=== PATIENT | female | born 1955 | race Caucasian/White ===

== ENCOUNTER 2018-08-31 21:06 | Emergency (ER) | payer BC ==
[2018-08-31] MEDS ORDERED: Zofran 4 MG/2 ML VIAL IV ONE (21:33)
[2018-08-31] MEDS ORDERED: Sodium Chloride 0.9% 1000 ML 1,000 ML IV STA (21:33)
--- NOTE | 2018-08-31 21:33 | ERPHSYRPT ---
- History of Present Illness Time Seen by Provider: 08/31/18 21:31 Historian: patient, family Exam Limitations: no limitations Patient Subjective Stated Complaint: pt reports right sided lower back pain that radiates down the lower extremity just proximal to the knee. pt also reports intermittent pain to the RLQ quadrant of the abdomen. pt reports pain is worse with movement. pt states she has been seeing a chiropractor for this pain going on 3 weeks, states some days it is worse than others. Triage Nursing Assessment: pt is aox3, pupils perrl, afebrile, resps easy and non labored, radial pulses strong and equal, cap refill < 3 seconds, pt skin pink warm dry. pt sensation is intact. ROM limited due to pain. no edema noted. Physician History: right flank pain radiating to anterior abd on hx of chronic back pain worse these three weeks and chiro tx not working' no n or v or fever or discharge; Timing/Duration: day(s) Activities at Onset: none Quality: sharpness, stabbing Abdominal Pain Onset Location: RLQ, flank Severity of Pain-Max: moderate Severity of Pain-Current: moderate Associated Symptoms: back Previous symptoms: different symptoms Allergies/Adverse Reactions: No Known Drug Allergies Allergy (Verified 08/31/18 21:26) Home Medications: Aspirin 81 mg PO DAILY 03/27/15 [History] Diltiazem HCl [Cardizem] 120 mg PO DAILY 03/27/15 [History] PANTOPRAZOLE 40 mg Tablet [Protonix 40MG Tablet] 40 mg PO DAILY 03/27/15 [ History] Levothyroxine Sodium 25 Mcg [Synthroid 25 Mcg] 25 mcg PO DAILY 08/31/18 [ History] Pravastatin Sodium [Pravachol] 20 mg PO DAILY 08/31/18 [History] Hx Tetanus, Diphtheria Vaccination/Date Given: Yes Hx Influenza Vaccination/Date Given: Yes Hx Pneumococcal Vaccination/Date Given: No Immunizations Up to Date: Yes - Review of Systems Constitutional: No Fever, No Chills Eyes: No Symptoms Ears, Nose, & Throat: No Symptoms Respiratory: No Cough, No Dyspnea Cardiac: No Chest Pain, No Edema, No Syncope Abdominal/Gastrointestinal: Abdominal Pain, No Nausea, No Vomiting, No Diarrhea Genitourinary Symptoms: No Dysuria Musculoskeletal: Back Pain, No Neck Pain Skin: No Rash Neurological: No Dizziness, No Focal Weakness, No Sensory Changes Psychological: No Symptoms Endocrine: No Symptoms All Other Systems: Reviewed and Negative - Past Medical History Pertinent Past Medical History: Yes Neurological History: No Pertinent History ENT History: No Pertinent History Cardiac History: Hypertension, Other Respiratory History: COPD Endocrine Medical History: No Pertinent History Musculoskeletal History: Degenerative Disk Disease GI Medical History: GERD History: No Pertinent History Female Reproductive Disorders: No Pertinent History Other Medical History: SMALL VESSEL DISEASE, HYPERTENSION - Past Surgical History Past Surgical History: Yes Neuro Surgical History: No Pertinent History Cardiac: Cardiac Catheterization Respiratory: No Pertinent History Gastrointestinal: No Pertinent History Genitourinary: No Pertinent History Musculoskeletal: No Pertinent History Female Surgical History: Tubal Ligation, Other Other Surgical History: HEART CATH,D&c,TUBAL - Social History Smoking Status: Never smoker Exposure to second hand smoke: No Drug Use: none Patient Lives Alone: No - Female History Hx Now: No - Nursing Vital Signs Nursing Vital Signs: Initial Vital Signs Temperature 98.1 F 08/31/18 21:12 Pulse Rate 85 08/31/18 21:12 Respiratory Rate 20 08/31/18 21:12 Blood Pressure 179/91 08/31/18 21:12 O2 Sat by Pulse Oximetry 100 08/31/18 21:12 Pain Scale Pain Intensity 10 - Physical Exam General Appearance: no apparent distress, alert Eye Exam: PERRL/EOMI, eyes nml inspection Ears, Nose, Throat Exam: normal ENT inspection, pharynx normal, moist mucous membranes Neck Exam: normal inspection, non-tender, supple, full range of motion Respiratory Exam: normal breath sounds, lungs clear, No respiratory distress Cardiovascular Exam: regular rate/rhythm, normal heart sounds Gastrointestinal/Abdomen Exam: soft, No tenderness, No mass Pelvic Exam: deferred Rectal Exam: deferred Back Exam: normal inspection, normal range of motion, No CVA tenderness, No vertebral tenderness Extremity Exam: normal inspection, normal range of motion, pelvis stable Neurologic Exam: alert, oriented x 3, cooperative, normal mood/affect, nml cerebellar function, sensation nml, No motor deficits Skin Exam: normal color, warm, dry SpO2 Interpretation: normal SpO2: 100 O2 Delivery: Room Air - Course Nursing assessment & vital signs reviewed: Yes - CT Exams Abdomen/Pelvis CT Interpretation: Tele-radiologist Report, No appendicitis, Other (DJD and kidney stones) Ordered Tests: Active Orders 24 hr Category Date Time Status IV Insertion STAT Care 08/31/18 21:33 Active ABDOMEN AND PELVIS W/0 CONTRAS [CT] Stat Exams 08/31/18 21:34 Taken AMYLASE Stat Lab 08/31/18 21:48 Completed CBC W DIFF Stat Lab 08/31/18 21:48 Completed CMP Stat Lab 08/31/18 21:48 Completed HCG QUALITATIVE,SERUM Stat Lab 08/31/18 21:48 Completed LIPASE Stat Lab 08/31/18 21:48 Completed Lactic Acid Stat Lab 08/31/18 21:39 Completed Occult Blood, Other Screening Stat Lab 08/31/18 21:34 Uncollected UA W/RFX UR CULTURE Stat Lab 08/31/18 22:15 Completed Medication Summary Generic Name Dose Route Start Last Admin Trade Name Freq PRN Reason Stop Dose Admin Ketorolac Tromethamine 30 mg 09/01/18 00:34 Toradol 30 Mg Injection IV 09/01/18 00:35 STAT ONE Orphenadrine Citrate 60 mg 09/01/18 00:34 Norflex 60 Mg/2 Ml IM 09/01/18 00:35 STAT ONE Discontinued Medications Generic Name Dose Route Start Last Admin Trade Name Freq PRN Reason Stop Dose Admin Sodium Chloride 1,000 mls @ 999 mls/hr 08/31/18 21:33 08/31/18 23:12 Sodium Chloride 0.9% 1000 Ml IV 08/31/18 22:33 Infused .Q1H1M STA Infusion Sodium Chloride Confirm 08/31/18 21:47 Sodium Chloride 0.9% 1000 Ml Administered 08/31/18 21:48 Dose 1,000 mls @ ud .ROUTE .STK-MED ONE Ketorolac Tromethamine 30 mg 08/31/18 21:35 08/31/18 21:53 Toradol 30 Mg Injection IV 08/31/18 21:36 30 mg STAT ONE Administration Ketorolac Tromethamine Confirm 08/31/18 21:47 Toradol 30 Mg Injection Administered 08/31/18 21:48 Dose 30 mg .ROUTE .STK-MED ONE Ondansetron HCl 4 mg 08/31/18 21:33 08/31/18 21:53 Zofran 4 Mg/2 Ml Vial IV 08/31/18 21:34 4 mg STAT ONE Administration Ondansetron HCl Confirm 08/31/18 21:47 Zofran 4 Mg/2 Ml Vial Administered 08/31/18 21:48 Dose 4 mg .ROUTE .STK-MED ONE Lab/Rad Data: Laboratory Result Diagrams 08/31/18 21:48 08/31/18 21:48 Laboratory Results 08/31/18 08/31/18 08/31/18 Range/Units 22:15 21:48 21:48 WBC (4.0-10.5) K/mm3 RBC (4.1-5.4) M/mm3 Hgb (12.0-16.0) gm/dl Hct (35-47) % MCV (78-100) fl MCH (26-32) pg MCHC (32-36) g/dl RDW (11.5-14.0) % Plt Count (150-450) K/mm3 MPV (6-9.5) fl Gran % (36.0-66.0) % Eos # (Auto) (0-0.5) Absolute Lymphs (auto) (1.0-4.6) Absolute Monos (auto) (0.0-1.3) Lymphocytes % (24.0-44.0) % Monocytes % (0.0-12.0) % Eosinophils % (0.00-5.0) % Basophils % (0.0-0.4) % Absolute Granulocytes (1.4-6.9) Basophils # (0-0.4) Sodium 139 (137-145) mmol/L Potassium 3.8 (3.5-5.1) mmol/L Chloride 105 (98-107) mmol/L Carbon Dioxide 23 (22-30) mmol/L Anion Gap 14.9 (5-15) MEQ/L BUN 22 H (7-17) mg/dL Creatinine 0.81 (0.52-1.04) mg/dL Estimated GFR > 60.0 ML/MIN Glucose 92 (74-106) mg/dL Lactic Acid (0.4-2.0) Calcium 10.7 H (8.4-10.2) mg/dL Total Bilirubin 0.30 (0.2-1.3) mg/dL AST 22 (14-36) U/L ALT 23 (0-35) U/L Alkaline Phosphatase 90 (38-126) U/L Serum Total Protein 7.3 (6.3-8.2) g/dL Albumin 4.4 (3.5-5.0) g/dL Amylase 77 (30-110) U/L Lipase 122 (23-300) U/L Serum , Qual NEGATIVE (Negative) Urine Color STRAW (YELLOW) Urine Appearance CLEAR (CLEAR) Urine pH 6.0 (5-6) Ur Specific [place] 1.010 (1.005-1.025) Urine Protein NEGATIVE (Negative) Urine Ketones NEGATIVE (NEGATIVE) Urine Blood NEGATIVE (0-5) Ramirez/ul Urine Nitrite NEGATIVE (NEGATIVE) Urine Bilirubin NEGATIVE (NEGATIVE) Urine Urobilinogen NEGATIVE (0-1) mg/dL Ur Leukocyte Esterase TRACE (NEGATIVE) Urine WBC (Auto) 3-5 (0-5) /HPF Urine RBC (Auto) NONE (0-2) /HPF U Epithel Cells (Auto) NONE (FEW) /HPF Urine Bacteria (Auto) NONE (NEGATIVE) /HPF Urine Culture Reflexed NO (NO) Urine Glucose NEGATIVE (NEGATIVE) mg/dL 08/31/18 08/31/18 Range/Units 21:48 21:39 WBC 9.9 (4.0-10.5) K/mm3 RBC 4.25 (4.1-5.4) M/mm3 Hgb 12.4 (12.0-16.0) gm/dl Hct 37.4 (35-47) % MCV 88.0 (78-100) fl MCH 29.2 (26-32) pg MCHC 33.2 (32-36) g/dl RDW 13.6 (11.5-14.0) % Plt Count 253 (150-450) K/mm3 MPV 10.2 H (6-9.5) fl Gran % 44.5 (36.0-66.0) % Eos # (Auto) 0.11 (0-0.5) Absolute Lymphs (auto) 4.52 (1.0-4.6) Absolute Monos (auto) 0.82 (0.0-1.3) Lymphocytes % 45.8 H (24.0-44.0) % Monocytes % 8.3 (0.0-12.0) % Eosinophils % 1.1 (0.00-5.0) % Basophils % 0.3 (0.0-0.4) % Absolute Granulocytes 4.38 (1.4-6.9) Basophils # 0.03 (0-0.4) Sodium (137-145) mmol/L Potassium (3.5-5.1) mmol/L Chloride (98-107) mmol/L Carbon Dioxide (22-30) mmol/L Anion Gap (5-15) MEQ/L BUN (7-17) mg/dL Creatinine (0.52-1.04) mg/dL Estimated GFR ML/MIN Glucose (74-106) mg/dL Lactic Acid 1.7 (0.4-2.0) Calcium (8.4-10.2) mg/dL Total Bilirubin (0.2-1.3) mg/dL AST (14-36) U/L ALT (0-35) U/L Alkaline Phosphatase (38-126) U/L Serum Total Protein (6.3-8.2) g/dL Albumin (3.5-5.0) g/dL Amylase (30-110) U/L Lipase (23-300) U/L Serum , Qual (Negative) Urine Color (YELLOW) Urine Appearance (CLEAR) Urine pH (5-6) Ur Specific [place] (1.005-1.025) Urine Protein (Negative) Urine Ketones (NEGATIVE) Urine Blood (0-5) Ramirez/ul Urine Nitrite (NEGATIVE) Urine Bilirubin (NEGATIVE) Urine Urobilinogen (0-1) mg/dL Ur Leukocyte Esterase (NEGATIVE) Urine WBC (Auto) (0-5) /HPF Urine RBC (Auto) (0-2) /HPF U Epithel Cells (Auto) (FEW) /HPF Urine Bacteria (Auto) (NEGATIVE) /HPF Urine Culture Reflexed (NO) Urine Glucose (NEGATIVE) mg/dL - Progress Progress: improved, re-examined Counseled pt/family regarding: lab results, diagnosis, need for follow-up, rad results - Departure Departure Disposition: Home Clinical Impression: DDD Lumbar with radiculopathy, Renal calculi, Enchondroma of left femur Condition: Good Critical Care Time: No Referrals: SADI DENG MD [Primary Care Provider] - Instructions: Low Back Pain (DC), Sciatica (DC), Degenerative Disc Disease (DC ), Kidney Stones (DC) Additional Instructions: followup with your Dr. for enchondroma of left femur to recheck and kidney stones; also to recheck blood pressure and for further treatment of back; return meantime if any concerns. Prescriptions: Orphenadrine Citrate 100 mg [Norflex 100 MG Tablet] 100 mg PO BID #10 tab
[2018-08-31] MEDS ORDERED: TORAdol 30 mg Injection IV ONE (21:35)
[2018-08-31 21:47] LABS: BASOPHIL % 0.3 % (0.0-0.4); Basophil (Absolute #) 0.03 (0-0.4); Eosinophil % 1.1 % (0.00-5.0); Eosinophil (Absolute #) 0.11 (0-0.5); Granulocyte Absolute (ANC) 4.38 (1.4-6.9); Granulocytes % 44.5 % (36.0-66.0); Hematocrit 37.4 % (35-47); Hemoglobin 12.4 gm/dl (12.0-16.0); Lymphocyte (Absolute #) 4.52 (1.0-4.6); Lymphocytes % 45.8 % (24.0-44.0); Mean Corpuscular Hemoglobin 29.2 pg (26-32); Mean Corpuscular Hgb Concent. 33.2 g/dl (32-36); Mean Platelet Volume 10.2 fl (6-9.5); Monocyte (Absolute #) 0.82 (0.0-1.3); Monocytes % 8.3 % (0.0-12.0); Platelet Count 253 K/mm3 (150-450); Red Blood Count 4.25 M/mm3 (4.1-5.4); Red Cell Distribution Width 13.6 % (11.5-14.0); White Blood Count 9.9 K/mm3 (4.0-10.5)
[2018-08-31] MEDS ORDERED: Sodium Chloride 0.9% 1000 ML 1,000 ML ONE (21:47)
[2018-08-31] MEDS ORDERED: TORAdol 30 mg Injection ONE (21:47)
[2018-08-31] MEDS ORDERED: Zofran 4 MG/2 ML VIAL ONE (21:47)
[2018-08-31 21:58] LABS: ALBUMIN 4.4 g/dL (3.5-5.0); ALKALINE PHOSPHATASE 90 U/L (38-126); AMYLASE 77 U/L (30-110); ANION GAP 14.9 MEQ/L (5-15); BLOOD UREA NITROGEN 22 mg/dL (7-17); CHLORIDE 105 mmol/L (98-107); Calcium 10.7 mg/dL (8.4-10.2); Carbon Dioxide 23 mmol/L (22-30); Creatinine 1 0.81 mg/dL (0.52-1.04); Glucose 92 mg/dL (74-106); LIPASE 122 U/L (23-300); Potassium 3.8 mmol/L (3.5-5.1); SGOT/AST 22 U/L (14-36); SGPT/ALT 23 U/L (0-35); SODIUM 139 mmol/L (137-145); Total Protein 7.3 g/dL (6.3-8.2)
[2018-08-31 22:19] LABS: Appearance CLEAR (CLEAR); Bilirubin NEGATIVE (NEGATIVE); Blood NEGATIVE Ery/ul (0-5); Glucose NEGATIVE (NEGATIVE); Ketones NEGATIVE (NEGATIVE); Leukocyte Esterase TRACE (NEGATIVE); Nitrite NEGATIVE (NEGATIVE); Protein,Urine Dip NEGATIVE (Negative); Urobilinogen NEGATIVE mg/dL (0-1)
[2018-09-01] MEDS ORDERED: Norflex 60 MG/2 ML IM ONE (00:34)
[2018-09-01] MEDS ORDERED: TORAdol 30 mg Injection IV ONE (00:34)
[2018-09-01 00:41] VITALS: O2SAT 100
[2018-09-01] MEDS ORDERED: Norflex 60 MG/2 ML ONE (00:44)
[2018-09-01] MEDS ORDERED: TORAdol 30 mg Injection ONE (00:44)
[2018-09-01 01:02] VITALS: BP 181/77; PULSE 60
--- NOTE | 2018-09-01 08:03 | XRAY ---
Indication: Right lower quadrant/flank pain. Multiple contiguous axial images obtained through the abdomen and pelvis without contrast as ordered. Comparison: None Lung bases are essentially clear. Heart is not enlarged. Noncontrasted stomach and bowel loops appear nonobstructed. Normal appendix. Mild diffuse scattered colonic fecal debris greatest in the right hemicolon. No free fluid/air. Remaining liver, gallbladder, pancreas, spleen, adrenal glands, kidneys, ureters, bladder, uterus, and aorta appear unremarkable for noncontrast exam. Osseous structures intact with incidental small left proximal femur enchondroma. No ventral or inguinal hernias. Impression: 1. Mild fecal stasis without obstruction. 2. Proximal left femur benign enchondroma. 3. Remaining CT abdomen/pelvis without contrast exam is negative. Comment: Preliminary interpretation was made by C. No discrepancy. CTDI 18.92
== END 2018-09-01 01:19 | disposition home or self-care (01) ==
LOC: ED 21:06
DX: M51.36 Other intervertebral disc degeneration, lumbar region (principal); M54.10 Radiculopathy, site unspecified; N20.0 Calculus of kidney; D16.22 Benign neoplasm of long bones of left lower limb; Z79.899 Other long term (current) drug therapy; I10 Essential (primary) hypertension; J44.9 Chronic obstructive pulmonary disease, unspecified; K21.9 Gastro-esophageal reflux disease without esophagitis
CPT/HCPCS: 36000; 36415; 74176; 80053; 81001; 81025; 82150; 83605; 83690; 85025; 96360; 96361; 96372; 96374; 96375; 96376; 99284; J1885; J2360; J2405

== ENCOUNTER 2018-11-26 08:02 | Day surgery (SDC) | payer BC ==
[2018-11-26] MEDS ORDERED: Depo-Medrol 40 MG/ML IM ONE (08:03)
[2018-11-26] MEDS ORDERED: Xylocaine-Mpf 2% 5 Ml Vial IJ ONE (08:03)
[2018-11-26] MEDS ORDERED: DIPRIVAN 200 MG/20 ML IV ONE (09:49)
[2018-11-26] MEDS ORDERED: Ketamine HCl 50 MG/ML ONE (09:49)
--- NOTE | 2018-11-26 11:56 | XRAY ---
Indication: Bilateral L4-S1 MBB. Intraoperative fluoroscopy was provided for 9 seconds. Single digital spot image submitted for interpretation demonstrates posterior needle tips projecting over the expected course of the left and right L4-S1 nerve roots. Correlate with intraoperative findings/report.
--- NOTE | 2018-11-26 12:08 | XRAY ---
9 seconds fluoroscopy time in surgery for bilateral L4-S1 MBB.
[2018-11-26] MEDS ORDERED: Lactated Ringers 1,000 ML IV ONE (14:17)
== END 2018-11-26 10:10 | disposition home or self-care (01) ==
LOC: SDC-PAIN 08:02
PROVIDERS: ATTEND Psychiatry & Neurology Pain Medicine
DX: M47.816 Spondylosis without myelopathy or radiculopathy, lumbar region (principal); J44.9 Chronic obstructive pulmonary disease, unspecified; K21.9 Gastro-esophageal reflux disease without esophagitis; Z79.899 Other long term (current) drug therapy
CPT/HCPCS: 64493; 64494; 72020; 77002; J1030; J2704

== ENCOUNTER 2018-12-17 12:57 | Day surgery (SDC) | payer BC ==
[2018-12-17] MEDS ORDERED: Xylocaine 1% Vial 30 ML PF IJ ONE (12:58)
[2018-12-17] MEDS ORDERED: Marcaine 0.5% SDV 10 ML IJ ONE (12:58)
[2018-12-17] MEDS ORDERED: Depo-Medrol 40 MG/ML IM ONE (12:58)
--- NOTE | 2018-12-18 02:44 | XRAY ---
Indication: Bilateral L4-S1 MBB. Intraoperative fluoroscopy was provided for 18 seconds. A single digital PA image reveals the posterior spinal needle tips to be projected over the expected course of the left and right L4-S1 nerve roots. Correlate with intraoperative findings/report.
--- NOTE | 2018-12-18 12:03 | XRAY ---
18 seconds fluoroscopy time in surgery for bilateral L4-S1 MBB.
== END 2018-12-17 14:12 | disposition home or self-care (01) ==
LOC: SDC-PAIN 12:57
PROVIDERS: ATTEND Psychiatry & Neurology Pain Medicine
DX: M47.816 Spondylosis without myelopathy or radiculopathy, lumbar region (principal); J44.9 Chronic obstructive pulmonary disease, unspecified; K21.9 Gastro-esophageal reflux disease without esophagitis; Z79.899 Other long term (current) drug therapy
CPT/HCPCS: 64493; 64494; 72020; 77002; J1030; J2001

== ENCOUNTER 2019-02-18 12:30 | Day surgery (SDC) | payer BC ==
[2019-02-18] MEDS ORDERED: Marcaine 0.5% SDV 10 ML IJ ONE (12:31)
[2019-02-18] MEDS ORDERED: Depo-Medrol 40 MG/ML IM ONE (12:31)
[2019-02-18] MEDS ORDERED: Xylocaine 1% Vial 30 ML PF IJ ONE (12:31)
[2019-02-18] MEDS ORDERED: DIPRIVAN 200 MG/20 ML IV ONE (14:28)
[2019-02-18] MEDS ORDERED: Ketamine HCl 50 MG/ML ONE (14:33)
--- NOTE | 2019-02-18 16:26 | XRAY ---
Indication: Right L4-S1 RFA. Intraoperative fluoroscopy was provided for 18 seconds. 5 digital spot images submitted for interpretation demonstrates posterior needle tips projecting over the expected course of the right L4-S1 nerve roots. Correlate with intraoperative findings/report.
--- NOTE | 2019-02-18 16:28 | XRAY ---
18 seconds fluoroscopy time in surgery for right L4-S1 RFA.
[2019-02-18] MEDS ORDERED: Lactated Ringers 1,000 ML IV ONE (18:22)
== END 2019-02-18 15:07 | disposition home or self-care (01) ==
LOC: SDC-PAIN 12:30
PROVIDERS: ATTEND Psychiatry & Neurology Pain Medicine
DX: M47.816 Spondylosis without myelopathy or radiculopathy, lumbar region (principal); J44.9 Chronic obstructive pulmonary disease, unspecified; K21.9 Gastro-esophageal reflux disease without esophagitis; I73.9 Peripheral vascular disease, unspecified; Z79.899 Other long term (current) drug therapy
CPT/HCPCS: 64635; 64636; 72100; 77002; J1030; J2001; J2704

== ENCOUNTER 2020-03-01 14:39 | Emergency (ER) | payer MEDICARE, OTHER ==
[2020-03-01 14:46] VITALS: PULSE 78; O2SAT 100
--- NOTE | 2020-03-01 14:55 | ERPHSYRPT ---
- History of Present Illness Time Seen by Provider: 03/01/20 15:00 Source: patient Exam Limitations: no limitations Patient Subjective Stated Complaint: Pt states "I have covid and for the past few days my head is woosy and my exhaustion and breathing has not been good." Triage Nursing Assessment: Pt presented alert and oriented X 3, skin pwd pt ambulates with an upright steady gait, able to speak in clear full sentences pt slightly tachypneic. Pt laying comfortably on the cot." Physician History: Patient is a 64-year-old female who is Covid positive day 12 presents to our ED with complaints of nasal congestion and feels that her breathing is somewhat more difficult. No chest pain no nausea no vomiting no fevers. No diarrhea. No rash. No hematuria or dysuria. Patient otherwise feels well. Patient states that her is Covid positive as well. Patient symptoms have been somewhat worse over the past 3 days. Patient is here because she wants to be reassured that there is nothing serious going on. Patient voices no other complaints concerns at this time. Timing/Duration: day(s) (Days) Severity: moderate Modifying Factors: Improves With: nothing Associated Symptoms: shortness of breath, other (URI symptomology), No nausea, No vomiting, No abdominal pain, No diaphoresis, No fever Allergies/Adverse Reactions: No Known Drug Allergies Allergy (Verified 08/31/18 21:26) Home Medications: Aspirin 81 mg PO DAILY 03/27/15 [History] Diltiazem HCl [Cardizem] 180 mg PO DAILY 03/27/15 [History] PANTOPRAZOLE 40 mg Tablet [Protonix 40MG Tablet] 40 mg PO DAILY 03/27/15 [History] Levothyroxine Sodium 25 Mcg [Synthroid 25 Mcg] 25 mcg PO DAILY 08/31/18 [History] Pravastatin Sodium [Pravachol] 20 mg PO DAILY 08/31/18 [History] Hx Tetanus, Diphtheria Vaccination/Date Given: Yes Hx Influenza Vaccination/Date Given: Yes Hx Pneumococcal Vaccination/Date Given: No Immunizations Up to Date: Yes Travel Risk - International Travel Have you traveled outside of the country in past 3 weeks: No - Coronavirus Screening Are you exhibiting any of the following symptoms?: Yes Symptoms: Shortness of Breath Close contact with a COVID-19 positive Pt in past 14-21 Days: Yes - Review of Systems Constitutional: No Symptoms, No Fever, No Chills Eyes: No Symptoms Ears, Nose, & Throat: No Symptoms Respiratory: No Symptoms, No Cough, No Dyspnea Cardiac: No Symptoms, No Chest Pain, No Edema, No Syncope Abdominal/Gastrointestinal: No Symptoms, No Abdominal Pain, No Nausea, No Vomiting, No Diarrhea Genitourinary Symptoms: No Symptoms, No Dysuria Musculoskeletal: No Symptoms, No Back Pain, No Neck Pain Skin: No Symptoms, No Rash Neurological: No Symptoms, No Dizziness, No Focal Weakness, No Sensory Changes Psychological: No Symptoms Endocrine: No Symptoms Hematologic/Lymphatic: No Symptoms Immunological/Allergic: No Symptoms All Other Systems: Reviewed and Negative - Past Medical History Pertinent Past Medical History: Yes Neurological History: No Pertinent History ENT History: No Pertinent History Cardiac History: Hypertension, Other Respiratory History: COPD Endocrine Medical History: No Pertinent History Musculoskeletal History: Degenerative Disk Disease GI Medical History: GERD History: No Pertinent History Female Reproductive Disorders: No Pertinent History Other Medical History: SMALL VESSEL DISEASE, HYPERTENSION - Past Surgical History Past Surgical History: Yes Neuro Surgical History: No Pertinent History Cardiac: Cardiac Catheterization Respiratory: No Pertinent History Gastrointestinal: No Pertinent History Genitourinary: No Pertinent History Musculoskeletal: No Pertinent History Female Surgical History: Tubal Ligation, Other Other Surgical History: HEART CATH,D&c,TUBAL - Social History Smoking Status: Never smoker Exposure to second hand smoke: No Drug Use: none Patient Lives Alone: No - Nursing Vital Signs Nursing Vital Signs: Initial Vital Signs Temperature 97.6 F 03/01/20 14:40 Pulse Rate 78 03/01/20 14:40 Respiratory Rate 24 03/01/20 14:40 Blood Pressure 185/85 03/01/20 14:40 O2 Sat by Pulse Oximetry 100 03/01/20 14:40 Pain Scale Pain Intensity 0 - Physical Exam General Appearance: no apparent distress, alert Eye Exam: PERRL/EOMI, eyes nml inspection Ears, Nose, Throat Exam: normal ENT inspection, TMs normal, pharynx normal, moist mucous membranes Neck Exam: normal inspection, non-tender, supple, full range of motion Respiratory Exam: normal breath sounds, lungs clear, No respiratory distress Cardiovascular Exam: regular rate/rhythm, normal heart sounds, normal peripheral pulses Gastrointestinal/Abdomen Exam: soft, normal bowel sounds, No tenderness, No mass Back Exam: normal inspection, normal range of motion, No CVA tenderness, No vertebral tenderness Extremity Exam: normal inspection, normal range of motion, pelvis stable Neurologic Exam: alert, oriented x 3, cooperative, normal mood/affect, nml cerebellar function, nml station & gait, sensation nml, No motor deficits Skin Exam: normal color, warm, dry, No rash Lymphatic Exam: No adenopathy SpO2 Interpretation: normal SpO2: 100 O2 Delivery: Room Air - Course Nursing assessment & vital signs reviewed: Yes EKG Interpreted by Me: RATE - Radiology Exams Chest X-ray Interpretation: Teleradiologist Report (No acute pathology. small granuloma of the lung) Ordered Tests: Active Orders 24 hr Category Date Time Status Vp Scientific Affairs STAT Care 03/01/20 14:57 Active EKG-ER Only STAT Care 03/01/20 14:55 Active IV Insertion STAT Care 03/01/20 14:55 Active Pulse Oximetry (ED) STAT Care 03/01/20 14:55 Active CHEST 1 VIEW (PORTABLE) Stat Exams 03/01/20 14:57 Completed CBC W DIFF Stat Lab 03/01/20 14:55 Completed CMP Stat Lab 03/01/20 14:55 Completed CULTURE,URINE Stat Lab 03/01/20 16:06 Received D-DIMER QUANTITATIVE Stat Lab 03/01/20 14:55 Completed MAGNESIUM Stat Lab 03/01/20 14:55 Completed NT PRO BNP Stat Lab 03/01/20 14:55 Completed TROPONIN Q3H Lab 03/01/20 14:55 Completed TROPONIN Q3H Lab 03/01/20 17:00 Completed TROPONIN Q3H Lab 03/01/20 21:00 Ordered TROPONIN Q3H Lab 03/02/20 00:00 Ordered TROPONIN Q3H Lab 03/02/20 03:00 Ordered UA W/RFX UR CULTURE Stat Lab 03/01/20 16:06 Completed Medication Summary Generic Name Dose Route Start Last Admin Trade Name Freq PRN Reason Stop Dose Admin Sodium Chloride 1,000 mls @ 50 mls/hr 03/01/20 15:00 03/01/20 15:03 Sodium Chloride 0.9% 1000 Ml IV 03/31/20 14:59 50 mls/hr .Q20H JANN Administration Lab/Rad Data: Laboratory Result Diagrams 03/01/20 14:55 03/01/20 14:55 Laboratory Results 03/01/20 03/01/20 03/01/20 Range/Units 17:00 16:06 14:55 WBC (4.0-10.5) K/mm3 RBC (4.1-5.4) M/mm3 Hgb (12.0-16.0) gm/dl Hct (35-47) % MCV (78-100) fl MCH (26-32) pg MCHC (32-36) g/dl RDW (11.5-14.0) % Plt Count (150-450) K/mm3 MPV (7.5-11.0) fl Gran % (36.0-66.0) % Eos # (Auto) (0-0.5) Absolute Lymphs (auto) (1.0-4.6) Absolute Monos (auto) (0.0-1.3) Lymphocytes % (24.0-44.0) % Monocytes % (0.0-12.0) % Eosinophils % (0.00-5.0) % Basophils % (0.0-0.4) % Absolute Granulocytes (1.4-6.9) Basophils # (0-0.4) D-Dimer (215-500) ng/mL Sodium (137-145) mmol/L Potassium (3.5-5.1) mmol/L Chloride (98-107) mmol/L Carbon Dioxide (22-30) mmol/L Anion Gap (5-15) MEQ/L BUN (7-17) mg/dL Creatinine (0.52-1.04) mg/dL Estimated GFR ML/MIN Glucose (74-106) mg/dL Calcium (8.4-10.2) mg/dL Magnesium (1.6-2.3) mg/dL Total Bilirubin (0.2-1.3) mg/dL AST (14-36) U/L ALT (0-35) U/L Alkaline Phosphatase (38-126) U/L Troponin I < 0.012 < 0.012 (0.000-0.034) ng/mL NT-Pro-B Natriuret Pep (0-900) pg/mL Serum Total Protein (6.3-8.2) g/dL Albumin (3.5-5.0) g/dL Urine Color STRAW (YELLOW) Urine Appearance CLEAR (CLEAR) Urine pH 8.0 (5-6) Ur Specific [place] 1.003 (1.005-1.025) Urine Protein NEGATIVE (Negative) Urine Ketones NEGATIVE (NEGATIVE) Urine Blood NEGATIVE (0-5) Ramirez/ul Urine Nitrite NEGATIVE (NEGATIVE) Urine Bilirubin NEGATIVE (NEGATIVE) Urine Urobilinogen NEGATIVE (0-1) mg/dL Ur Leukocyte Esterase TRACE (NEGATIVE) Urine WBC (Auto) 0-2 (0-5) /HPF Urine RBC (Auto) NONE (0-2) /HPF U Epithel Cells (Auto) NONE (FEW) /HPF Urine Bacteria (Auto) NONE (NEGATIVE) /HPF Urine Mucus (Auto) SLIGHT (NEGATIVE) /HPF Urine Culture Reflexed YES (NO) Urine Glucose NEGATIVE (NEGATIVE) mg/dL 03/01/20 03/01/20 03/01/20 Range/Units 14:55 14:55 14:55 WBC 7.9 (4.0-10.5) K/mm3 RBC 4.58 (4.1-5.4) M/mm3 Hgb 12.9 (12.0-16.0) gm/dl Hct 38.8 (35-47) % MCV 84.7 (78-100) fl MCH 28.2 (26-32) pg MCHC 33.2 (32-36) g/dl RDW 13.4 (11.5-14.0) % Plt Count 272 (150-450) K/mm3 MPV 10.5 (7.5-11.0) fl Gran % 43.5 (36.0-66.0) % Eos # (Auto) 0.04 (0-0.5) Absolute Lymphs (auto) 3.64 (1.0-4.6) Absolute Monos (auto) 0.77 (0.0-1.3) Lymphocytes % 46.0 H (24.0-44.0) % Monocytes % 9.7 (0.0-12.0) % Eosinophils % 0.5 (0.00-5.0) % Basophils % 0.3 (0.0-0.4) % Absolute Granulocytes 3.45 (1.4-6.9) Basophils # 0.02 (0-0.4) D-Dimer 266 (215-500) ng/mL Sodium 140 (137-145) mmol/L Potassium 3.8 (3.5-5.1) mmol/L Chloride 112 H (98-107) mmol/L Carbon Dioxide 20 L (22-30) mmol/L Anion Gap 11.5 (5-15) MEQ/L BUN 15 (7-17) mg/dL Creatinine 0.73 (0.52-1.04) mg/dL Estimated GFR > 60.0 ML/MIN Glucose 94 (74-106) mg/dL Calcium 10.8 H (8.4-10.2) mg/dL Magnesium 2.2 (1.6-2.3) mg/dL Total Bilirubin 0.40 (0.2-1.3) mg/dL AST 30 (14-36) U/L ALT 32 (0-35) U/L Alkaline Phosphatase 98 (38-126) U/L Troponin I (0.000-0.034) ng/mL NT-Pro-B Natriuret Pep 102 (0-900) pg/mL Serum Total Protein 7.2 (6.3-8.2) g/dL Albumin 4.3 (3.5-5.0) g/dL Urine Color (YELLOW) Urine Appearance (CLEAR) Urine pH (5-6) Ur Specific [place] (1.005-1.025) Urine Protein (Negative) Urine Ketones (NEGATIVE) Urine Blood (0-5) Ramirez/ul Urine Nitrite (NEGATIVE) Urine Bilirubin (NEGATIVE) Urine Urobilinogen (0-1) mg/dL Ur Leukocyte Esterase (NEGATIVE) Urine WBC (Auto) (0-5) /HPF Urine RBC (Auto) (0-2) /HPF U Epithel Cells (Auto) (FEW) /HPF Urine Bacteria (Auto) (NEGATIVE) /HPF Urine Mucus (Auto) (NEGATIVE) /HPF Urine Culture Reflexed (NO) Urine Glucose (NEGATIVE) mg/dL - Progress Progress: improved Progress Note: 03/01/20 16:49 Status. She is well. No resting shortness of breath. Vital stable. Patient ambulated throughout our ED. O2 sats remained within normal limits. Patient has no chest pain. Patient symptoms are likely related to her Covid. Troponin negative x 2. Negative. Chest x-ray we attempted to call patient's icer machine for a follow-up within the next 24 to 48 hours. However his icer machine not available. Patient that she will call her icer machine on her own in the morning and schedule a follow-up as discussed. 03/01/20 18:24 03/01/20 18:24 03/01/20 18:25 Counseled pt/family regarding: lab results, diagnosis, need for follow-up, rad results - Departure Departure Disposition: Home Clinical Impression: COVID-19, Shortness of breath Condition: Stable Critical Care Time: No Referrals: SADI DENG MD [Primary Care Provider] -
[2020-03-01] MEDS ORDERED: Sodium Chloride 0.9% 1000 ML 1,000 ML IV SCH (15:00)
[2020-03-01] MEDS ORDERED: Sodium Chloride 0.9% 1000 ML 1,000 ML ONE (15:02)
[2020-03-01 15:27] LABS: Absolute Neutrophil Ct (ANC) 3.45 (1.4-6.9); BASOPHIL % 0.3 % (0.0-0.4); Basophil (Absolute #) 0.02 (0-0.4); Eosinophil % 0.5 % (0.00-5.0); Eosinophil (Absolute #) 0.04 (0-0.5); Hematocrit 38.8 % (35-47); Hemoglobin 12.9 gm/dl (12.0-16.0); Lymphocyte (Absolute #) 3.64 (1.0-4.6); Mean Cell Volume 84.7 fl (78-100); Mean Corpuscular Hemoglobin 28.2 pg (26-32); Mean Corpuscular Hgb Concent. 33.2 g/dl (32-36); Mean Platelet Volume 10.5 fl (7.5-11.0); Monocyte (Absolute #) 0.77 (0.0-1.3); Monocytes % 9.7 % (0.0-12.0); Neutrophil % 43.5 % (36.0-66.0); Platelet Count 272 K/mm3 (150-450); Red Blood Count 4.58 M/mm3 (4.1-5.4); Red Cell Distribution Width 13.4 % (11.5-14.0); White Blood Count 7.9 K/mm3 (4.0-10.5)
--- NOTE | 2020-03-01 15:27 | XRAY ---
Indication: Chest pain. Positive Covid 19. Comparison: March 27, 2015. Portable chest continues to demonstrate normal heart, lungs, and bony thorax with incidental tiny left apical calcified granuloma.
[2020-03-01 15:51] LABS: ALBUMIN 4.3 g/dL (3.5-5.0); ALKALINE PHOSPHATASE 98 U/L (38-126); ANION GAP 11.5 MEQ/L (5-15); BLOOD UREA NITROGEN 15 mg/dL (7-17); CHLORIDE 112 mmol/L (98-107); Calcium 10.8 mg/dL (8.4-10.2); Carbon Dioxide 20 mmol/L (22-30); Creatinine 1 0.73 mg/dL (0.52-1.04); EST GLOMERULAR FILTRATION RATE > 60.0 ML/MIN; Glucose 94 mg/dL (74-106); MAGNESIUM 2.2 mg/dL (1.6-2.3); NT PRO BNP 102 pg/mL (0-900); Potassium 3.8 mmol/L (3.5-5.1); SGOT/AST 30 U/L (14-36); SGPT/ALT 32 U/L (0-35); SODIUM 140 mmol/L (137-145); Total Protein 7.2 g/dL (6.3-8.2)
[2020-03-01 16:03] LABS: Appearance CLEAR (CLEAR); Bilirubin NEGATIVE (NEGATIVE); Blood NEGATIVE Ery/ul (0-5); Glucose NEGATIVE (NEGATIVE); Ketones NEGATIVE (NEGATIVE); Leukocyte Esterase TRACE (NEGATIVE); Mucus SLIGHT /HPF (NEGATIVE); Nitrite NEGATIVE (NEGATIVE); Protein,Urine Dip NEGATIVE (Negative); Specific Gravity 1.003 (1.005-1.025); Urobilinogen NEGATIVE mg/dL (0-1); WBC 0-2 /HPF (0-5)
[2020-03-01 16:22] VITALS: BP 176/82
== END 2020-03-01 18:35 | disposition home or self-care (01) ==
LOC: ED 14:39
DX: U07.1 COVID-19 (principal); R06.02 Shortness of breath; J44.9 Chronic obstructive pulmonary disease, unspecified; I10 Essential (primary) hypertension; Z79.899 Other long term (current) drug therapy
CPT/HCPCS: 36000; 36415; 71045; 80053; 81001; 83735; 83880; 84484; 85025; 85379; 87086; 93005; 94760; 99284

== ENCOUNTER 2022-11-20 09:14 | Day surgery (SDC) | payer MEDICARE, OTHER ==
[~2022-11-20 09:14] MED LIST: Ak-Dilate OPHTHALMIC*** 1.065 ML, Cyclogyl 1% OPHTH SOL 1.065 ML, GATIFLOXACIN 0.5% OPH... OP ONE; BETADINE 5% OPHTHALMIC 30 ML OP ONE; Lactated Ringers 1,000 ML IV SCH; NON-FORMULARY ITEM OP ONE; TETRACAINE 0.5% STERI-UNIT SOL OP ONE; cefUROXime sodium 0.005 GM in Sodium Chloride Flush 30 ML*** 0.5 ML IJ ONE
[2022-11-20] MEDS ORDERED: Lactated Ringers 1,000 ML IV ONE (09:36)
[2022-11-20] MEDS ORDERED: ACETAZOLAMIDE 250 MG TABLET PO ONE (10:30)
[2022-11-20] MEDS ORDERED: Zofran 4 MG/2 ML VIAL IV PRN (10:30)
[2022-11-20] MEDS ORDERED: DIPRIVAN 200 MG/20 ML IV ONE (11:46)
[2022-11-20] MEDS ORDERED: Versed 2 MG/2 ML Injection ONE (11:54)
[2022-11-20 12:16] VITALS: RESP 16
[2022-11-20 12:28] VITALS: BP 126/77; PULSE 76; TEMP 96.5; O2SAT 97
[2022-11-20] MEDS ORDERED: Epinephrine Preservative Free 1 MG/ML ONE (15:11)
== END 2022-11-20 12:30 | disposition home or self-care (01) ==
LOC: SDC 09:14
PROVIDERS: ATTEND Ophthalmology
DX: H25.811 Combined forms of age-related cataract, right eye (principal)
CPT/HCPCS: C1780; J0171; J2250; J2704; A9270-GY